=== PATIENT | female | born 1955 | race Caucasian/White ===

== ENCOUNTER 2017-02-23 15:53 | Emergency (ER) | payer BC ==
[2017-02-23 16:05] VITALS: BP 215/115
[2017-02-23] MEDS ORDERED: oxyCODONE ER 10 MG TAB.ER PO ONE (17:21)
--- NOTE | 2017-02-23 17:25 | EDM.PDOC ---
ED HPI GENERAL MEDICAL PROBLEM - General Chief Complaint: Drug or Alcohol Abuse Stated Complaint: PRESCRIPTION DRUG WITHDRAWL Time Seen by Provider: 02/23/17 16:59 Source of Information: Reports: Patient History Limitations: Reports: No Limitations - History of Present Illness INITIAL COMMENTS - FREE TEXT/NARRATIVE: Patient is a 62-year-old female with a history of anxiety, bipolar, depression, chronic pain syndrome, narcotic addiction, hypertension who presents to the ED after dumping all her medications. Patient states her mother recently and patient dumped all her medications thinking that she would be okay. She has a history of chronic narcotic use and thought she could quit cold turkey. Patient takes narcotics for chronic pain to neck, left humerus, back, knees bilaterally, fingers, and surgical incision from her breast cancer. She's been taking OxyContin for was 20 years 30 mg twice a day. She also takes oxycodone 5 mg tab during the day. For breakthrough pain. She is experiencing withdrawal symptoms including stomach cramping, diarrhea, hot and cold flashes. She is mildly nauseated with no emesis. There is no blood in her stool she denies any dysuria, chest pain, shortness of breath. There is no documented fever. These current symptoms are similar to previous episodes when she withdrawal from opiates. She has an appointment scheduled with Toya Sands tomorrow morning. In addition she states she was taking 3 different antidepressants and also metoprolol. She denies any suicidal or homicidal ideations. She denies being depressed at this time. Bilateral Lower Abdomen Pain Score (Numeric/FACES): 8 - Related Data Allergies Allergy/AdvReac Type Severity Reaction Status Date / Time ciprofloxacin Allergy Cannot Verified 03/24/16 12:40 Remember varenicline [From Chantix] AdvReac Anxiety Verified 03/24/16 12:46 Home Meds: Home Meds Metoprolol Tartrate 25 mg PO BID #6 tablet 02/23/17 [Rx] oxyCODONE HCl [Oxycontin] 30 mg PO BID #6 tab.er.12h 02/23/17 [Rx] oxyCODONE HCl/Acetaminophen [oxyCODONE-Acetaminophen 5-325] 1 tab PO Q6H PRN #6 tablet 02/23/17 [Rx] Past Medical History HEENT History: Reports: Impaired Vision Cardiovascular History: Reports: Hypertension Musculoskeletal History: Reports: Fracture Other Musculoskeletal History: left arm Psychiatric History: Reports: Addiction, Anxiety, Bipolar, Depression Oncologic (Cancer) History: Reports: Breast, Cervix - Past Surgical History Female Surgical History: Reports: Hysterectomy, Mastectomy Musculoskeletal Surgical History: Reports: Other (See Below) Other Musculoskeletal Surgeries/Procedures:: plate in left arm Social & Family History - Family History Family Medical History: Noncontributory - Tobacco Use Smoking Status *Q: Current Every Day Smoker Years of Tobacco use: 45 Packs/Tins Daily: 1 - Caffeine Use Caffeine Use: Reports: Coffee - Recreational Drug Use Recreational Drug Use: Yes Recreational Drug Type: Reports: Oxycodone ED ROS GENERAL - Review of Systems Review Of Systems: ROS reveals no pertinent complaints other than HPI. ED EXAM, GENERAL - Physical Exam Exam: See Below Exam Limited By: No Limitations General Appearance: Alert, WD/WN, No Apparent Distress Eye Exam: Bilateral Eye: PERRL Ears: Hearing Grossly Normal Nose: Normal Inspection Throat/Mouth: Normal Voice, No Airway Compromise Neck: Normal Inspection, Supple Respiratory/Chest: No Respiratory Distress, Lungs Clear, Normal Breath Sounds, No Accessory Muscle Use Cardiovascular: Normal Peripheral Pulses, Regular Rate, Rhythm, No Murmur GI/Abdominal: Normal Bowel Sounds, Soft, Non-Tender, No Organomegaly, No Distention Extremities: Normal Inspection, Normal Range of Motion, Non-Tender, No Pedal Edema, Normal Capillary Refill Neurological: Alert, Oriented, CN II-XII Intact, Normal Cognition, No Motor/ Sensory Deficits Psychiatric: Normal Affect, Normal Mood Skin Exam: Warm, Dry, Intact, Normal Color Course - Vital Signs Last Recorded V/S: Last Vital Signs Temp 98.7 F 02/23/17 16:01 Pulse 78 02/23/17 18:07 Resp 18 02/23/17 16:01 BP 215/115 H 02/23/17 16:01 Pulse Ox 100 02/23/17 18:07 - Orders/Labs/Meds Meds: Medications Discontinued Medications Generic Name Dose Route Start Last Admin Trade Name Freq PRN Reason Stop Dose Admin Metoprolol Succinate 25 mg 02/24/17 17:42 Toprol Xl PO 02/24/17 17:43 DAILY ONE Metoprolol Tartrate 25 mg 02/23/17 17:45 Lopressor PO 02/23/17 17:46 ONETIME ONE Oxycodone HCl 30 mg 02/23/17 17:21 02/23/17 17:30 Oxycontin PO 02/23/17 17:22 30 mg ONETIME ONE Administration - Re-Assessments/Exams Free Text/Narrative Re-Assessment/Exam: BP on examination was 180 systolic. [facility] was contacted and current medication list was faxed to the ED. Patient is taking OxyContin 30 mg tab 1 tab by mouth every 12 hours and oxycodone tab 5 mg 1 tablet every 4 hours as needed for moderate pain. Last prescription was dated 01/13/2017 for OxyContin 30 mg tabs. Oxycodone 5 mg tabs . Ordered OxyContin 30 mg by mouth. Patient has an appointment with her PCP Tressa Adams for tomorrow morning. Pharmacy states She has not been on any anti- hypertensive medications for almost one year. No antidepressants were listed on medication list. 02/23/17 17:40 Questioned patient what medications she is currently on. States she receives her antidepressants and [facility] medications [facility] She does not know exactly the dosage or antidepressant medications she is currently taking. She does know she takes metoprolol 25 mg twice a day. Workup metoprolol tartrate 25 mg by mouth. Prescription for OxyContin, oxycodone, and metoprolol provided. She will see her PCP tomorrow morning. Discharge instructions as documented. 02/25/17 08:41 Departure - Departure Time of Disposition: 17:47 Disposition: Home, Self-Care 01 Condition: Good Clinical Impression: Drug dependence Medication withdrawal Qualifiers: Substance type: opioid Qualified Code(s): F11.23 - Opioid dependence with withdrawal HTN (hypertension) Qualifiers: Hypertension type: unspecified Qualified Code(s): I10 - Essential (primary) hypertension Depression Qualifiers: Depression Type: other depression Qualified Code(s): F32.89 - Other specified depressive episodes - Discharge Information Prescriptions: Metoprolol Tartrate 25 mg PO BID #6 tablet oxyCODONE HCl [Oxycontin] 30 mg PO BID #6 tab.er.12h oxyCODONE HCl/Acetaminophen [oxyCODONE-Acetaminophen 5-325] 1 tab PO Q6H PRN #6 tablet PRN Reason: Pain (Severe 7-10) Instructions: Hypertension, [id number], Finding Treatment for Addiction Referrals: Vandana Adams NP [Primary Care Provider] - Additional Instructions: Take the OxyContin, oxycodone, and metoprolol as prescribed. Keep your appointment with your PCP for scheduled for tomorrow morning for refills of pain medications, hypertension medications, and antidepressants. No driving this evening with taking the OxyContin or oxycodone. Return to ED as needed for any new or worsening symptoms.
[2017-02-23] MEDS ORDERED: Metoprolol Tartrate 25 MG Tab PO ONE (17:45)
[2017-02-24] MEDS ORDERED: Metoprolol Succinate 25 MG Tab.ER PO ONE (17:42)
== END 2017-02-23 17:55 | disposition home or self-care (01) ==
LOC: JD.ED 15:53
DX: F11.23 Opioid dependence with withdrawal (principal); F32.89 Other specified depressive episodes; I10 Essential (primary) hypertension; F17.210 Nicotine dependence, cigarettes, uncomplicated; Z88.1 Allergy status to other antibiotic agents; Z90.710 Acquired absence of both cervix and uterus; Z98.890 Other specified postprocedural states; Z88.8 Allergy status to other drugs, medicaments and biological substances
CPT/HCPCS: 99284; A9270; 99283

== ENCOUNTER 2017-03-21 17:43 | Emergency (ER) | payer BC ==
[2017-03-21 18:11] VITALS: BP 194/97
--- NOTE | 2017-03-21 18:41 | EDM.PDOCBH ---
ED HPI GENERAL MEDICAL PROBLEM - General Chief Complaint: Drug or Alcohol Abuse Stated Complaint: WITHDRAWAL SYMPTOMS Time Seen by Provider: 03/21/17 18:38 Source of Information: Reports: Patient History Limitations: Reports: No Limitations - History of Present Illness INITIAL COMMENTS - FREE TEXT/NARRATIVE: 62 year old female presents for evaluation and treatment of withdrawl symptoms. Patient reports she has bipolar and depression she has been self medicating with her narcotic pain medications. She receives oxycontin 30mg #60 and oxycodone 5mg #180 monthly. She is currently out of these medications, she took the last one yesterday. She reports taking excess over the last several weeks. She has stopped her depression medications. States she has been on narcotic pain medications for about 20 years. She is unsure why shy is on narcotic pain medications; she states it is either for IBS, depression or bipolar. Was previously on lexapro, fetzima, amitryptline and is currently on valvium for depression and anxiety. She denies any current suicidal thoughts, suicidial plan , homicidial thoughts or homicidal plan. Patient is currently reporting withdrawl symptoms. States she has been through withdrawl symptoms before and she knows this is what she is experiencing. She reports feeling hot and cold, stomach cramps, diarrhea, nausea and headaches. She denies any tremors, vomiting or seizures. Patient dose have some diazepam left. She is in a pain contract with Toya Adams. - Related Data Allergies Allergy/AdvReac Type Severity Reaction Status Date / Time ciprofloxacin Allergy Cannot Verified 03/21/17 18:11 Remember varenicline [From Chantix] AdvReac Anxiety Verified 03/21/17 18:11 Home Meds: Home Meds Metoprolol Tartrate 25 mg PO BID #6 tablet 02/23/17 [Rx] oxyCODONE HCl [Oxycontin] 30 mg PO BID #6 tab.er.12h 02/23/17 [Rx] oxyCODONE HCl/Acetaminophen [oxyCODONE-Acetaminophen 5-325] 1 tab PO Q6H PRN #6 tablet 02/23/17 [Rx] Amitriptyline HCl 100 mg PO BEDTIME 03/21/17 [History] Levomilnacipran Hydrochloride [Fetzima] 80 mg PO DAILY 03/21/17 [History] Levothyroxine Sodium [Synthroid] 1 tab PO DAILY 03/21/17 [History] Ondansetron [Zofran ODT] 4 mg PO Q8H PRN #12 tab.dis 03/21/17 [Rx] Past Medical History HEENT History: Reports: Cataract, Impaired Vision Cardiovascular History: Reports: Hypertension Gastrointestinal History: Reports: Irritable Bowel Syndrome Musculoskeletal History: Reports: Fracture Other Musculoskeletal History: left arm Psychiatric History: Reports: Addiction, Anxiety, Bipolar, Depression Oncologic (Cancer) History: Reports: Breast, Cervix - Past Surgical History HEENT Surgical History: Reports: Cataract Surgery Female Surgical History: Reports: Hysterectomy, Mastectomy Musculoskeletal Surgical History: Reports: Other (See Below) Other Musculoskeletal Surgeries/Procedures:: plate in left arm Social & Family History - Family History Family Medical History: Noncontributory - Tobacco Use Smoking Status *Q: Current Every Day Smoker Years of Tobacco use: 20 Packs/Tins Daily: 1 - Caffeine Use Caffeine Use: Reports: Coffee - Recreational Drug Use Recreational Drug Use: No Recreational Drug Type: Reports: Oxycodone ED ROS GENERAL - Review of Systems Review Of Systems: See Below Constitutional: Reports: Chills GI/Abdominal: Reports: Abdominal Pain (abdominal cramps), Nausea. Denies: Vomiting Neurological: Reports: Headache. Denies: Seizure, Tremors Psychiatric: Reports: Depression. Denies: Homicidal Ideation, Suicidal Ideation ED EXAM, BEHAVIORAL HEALTH - Physical Exam Exam: See Below Exam Limited By: No Limitations General Appearance: Alert, WD/WN, No Apparent Distress Respiratory/Chest: No Respiratory Distress, Lungs Clear, Normal Breath Sounds Cardiovascular: Normal Peripheral Pulses, Regular Rate, Rhythm, No Murmur GI/Abdominal: Soft, Non-Tender Neurological: Alert, Normal Cognition Psychiatric: Alert, Depressed Mood, Tearful. 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 She received oxycodone 5mg #180, oxycotin 30mg #60 (30 days supplies) on 02-24-17 and diazepam #180 (90 day supply) on 02-24. She has received 35 prescriptions for controlled substances from 2 prescribers in the last year. She is out of her medications almost a full week early. Review of the patient record shows an ER visit on 02-23-17 for withdrawal symptoms after discarding the remainder her medication after trying to quit "sold turkey". She was given a refill her her oxycodone and oxycotin then, 6 tabs each. Patient reports to me she has been off her antidepressants for a couple of days. Her significant other states this has been longer. ER record indicates she was not taking them at that time of her last visit. Given the patient is not suicidal or homicidal at this time a psychiatric inpatient stay is not indicated. Given the patient is not taking her narcotics as prescribed and she is in a pain contract I am unable to fill her medication today. She has mild withdrawl symptoms today which may worsen tomorrow. She asks I put her in the hospital for withdrawl. I feel this is inappropriate as she can manage the symptoms at home. She will likely be uncomfortable. But can manage with the valvium she has , OTC medications and other modalities such as warm baths. I encouraged her to call her PCP Thursday to discuss her current situation and see if her medications could be filled early. Departure - Departure Time of Disposition: 18:38 Disposition: Home, Self-Care 01 Condition: Fair Clinical Impression: Narcotic abuse - Discharge Information Prescriptions: Ondansetron [Zofran ODT] 4 mg PO Q8H PRN #12 tab.dis PRN Reason: Nausea Instructions: Chemical Dependency Referrals: Vandana Adams NP [Primary Care Provider] - Additional Instructions: Unfortunately, we are unable to refill narcotic medications for chronic pain in the ER. I recommend you continue use your diazepam as needed for anxiety. Take over-the- counter Tylenol or Motrin as needed for abdominal pain and cramping. I recommend he take a warm bath to help with your symptoms. Contact your primary care provider's office on Thursday to see if they will refill your medications early. Zofran 1 tab sublingual every 8 hours as needed for nausea given. Please return to the ER if your symptoms change or worsen.
== END 2017-03-21 18:52 | disposition home or self-care (01) ==
LOC: JD.ED 17:43
DX: F11.10 Opioid abuse, uncomplicated (principal); I10 Essential (primary) hypertension; F17.210 Nicotine dependence, cigarettes, uncomplicated; Z90.710 Acquired absence of both cervix and uterus; Z98.890 Other specified postprocedural states; Z88.8 Allergy status to other drugs, medicaments and biological substances; Z88.1 Allergy status to other antibiotic agents; Z79.899 Other long term (current) drug therapy; Z98.49 Cataract extraction status, unspecified eye
CPT/HCPCS: 99282; 99283

== ENCOUNTER 2018-03-19 14:46 | Emergency (ER) | payer BC ==
[2018-03-19 15:00] VITALS: BP 165/95
--- NOTE | 2018-03-19 15:44 | EDM.PDOCBH ---
ED HPI GENERAL MEDICAL PROBLEM - General Chief Complaint: Behavioral/Psych Stated Complaint: YANIRA SHEPHERD Time Seen by Provider: 03/19/18 15:17 Source of Information: Reports: Patient History Limitations: Reports: No Limitations - History of Present Illness INITIAL COMMENTS - FREE TEXT/NARRATIVE: 63-year-old female presents for management of her bipolar and depression. Patient has a history of bipolar and depression. She states she has not had a manic episode and the last 18 years. She reports for the last few months and in particular the last 2 weeks her depression has significantly worsened. is present in the room and states that she is sleeping most the day. Sleeping 16 to 18 hrs. and lays in bed for the remainder most the day. Patient does feel depressed. She denies any energy. She states she has not had any interest in anything. She does not have any appetite. She states that she is having trouble with short-term memory. She states that "things don't feel real ". This feels similar to previous depressive episodes she's had the past. Patient denies any thoughts of suicide, however, states that she did make some comments about suicide several weeks ago. She states that she has her mago and she "wouldn't take her life ." she does not have any suicidal plan. No homicidal thoughts or plan. She is currently on Remeron 45 mg, Abilify 20 mg and lamictal of 50 mg. She has been on this since May. Was previously seen by Dr. Tran but has been unable to see him since May due to scheduling problems. She is not currently seeing a counselor. Patient has seen Dr. Bunch at [facility], she felt that this was not a good fit for her. She does have an appointment with a provider at [facility] on Thursday. Her primary care provider is Toya Adams. Reports that she try amphetamine 10 mg 3 times a day several weeks ago. States initially she felt better but then her symptoms worsened again. She states she's had her thyroid checked in the recent past by Vandana Adams. - Related Data Allergies Allergy/AdvReac Type Severity Reaction Status Date / Time ciprofloxacin Allergy Cannot Verified 03/19/18 14:59 Remember varenicline [From Chantix] AdvReac Anxiety Verified 03/19/18 14:59 Home Meds: Home Meds Metoprolol Tartrate 25 mg PO BID #6 tablet 02/23/17 [Rx] oxyCODONE HCl [Oxycontin] 30 mg PO BID #6 tab.er.12h 02/23/17 [Rx] oxyCODONE HCl/Acetaminophen [oxyCODONE-Acetaminophen 5-325] 1 tab PO Q6H PRN #6 tablet 02/23/17 [Rx] Amitriptyline HCl 100 mg PO BEDTIME 03/21/17 [History] Levomilnacipran Hydrochloride [Fetzima] 80 mg PO DAILY 03/21/17 [History] Levothyroxine Sodium [Synthroid] 1 tab PO DAILY 03/21/17 [History] Ondansetron [Zofran ODT] 4 mg PO Q8H PRN #12 tab.dis 03/21/17 [Rx] ARIPiprazole [Abilify] 10 mg PO DAILY #30 tab 03/19/18 [Rx] buPROPion [Wellbutrin SR] 100 mg PO DAILY #30 tab.sr 03/19/18 [Rx] Past Medical History HEENT History: Reports: Cataract, Impaired Vision Cardiovascular History: Reports: Hypertension Gastrointestinal History: Reports: Irritable Bowel Syndrome Musculoskeletal History: Reports: Fracture Other Musculoskeletal History: left arm Psychiatric History: Reports: Addiction, Anxiety, Bipolar, Depression Oncologic (Cancer) History: Reports: Breast, Cervix - Past Surgical History HEENT Surgical History: Reports: Cataract Surgery Female Surgical History: Reports: Hysterectomy, Mastectomy Musculoskeletal Surgical History: Reports: Other (See Below) Other Musculoskeletal Surgeries/Procedures:: plate in left arm Social & Family History - Family History Family Medical History: Noncontributory - Caffeine Use Caffeine Use: Reports: Coffee ED ROS GENERAL - Review of Systems Review Of Systems: See Below Constitutional: Reports: Fatigue, Decreased Appetite Psychiatric: Reports: Depression. Denies: Homicidal Ideation, Suicidal Ideation ED EXAM, BEHAVIORAL HEALTH - Physical Exam Exam: See Below Exam Limited By: No Limitations General Appearance: Alert, WD/WN, No Apparent Distress Ears: Normal External Exam Nose: Normal Inspection Throat/Mouth: Normal Inspection, Normal Lips, Normal Voice, No Airway Compromise Neck: Normal Inspection Respiratory/Chest: No Respiratory Distress Neurological: Alert, Normal Mood/Affect, Normal Cognition Psychiatric: Alert, Depressed Mood. No: Non-Communicative, Poor Eye Contact, Uncooperative, Homicidal Thoughts, Suicidal Plan, Suicidal Thoughts, Auditory Hallucinations, Visual Hallucinations, Paranoid Thoughts, Threatening Behavior Skin Exam: Warm, Dry, Normal color COURSE, BEHAVIORAL HEALTH COMP - Course Vital Signs: Last Vital Signs Temp 98.4 F 03/19/18 14:53 Pulse 96 03/19/18 14:53 Resp 12 03/19/18 14:53 BP 165/95 H 03/19/18 14:53 Pulse Ox 94 L 03/19/18 14:53 Re-Assessment/Re-Exam: 16:[address] Tran, psychiatry yarn preparation supervisor. Recommend increasing her Abilify from 20 mg 30 mg, increasing the Lamictal from 50 mg to 75 mg and starting Wellbutrin SR 100 mg. Recommend following- up Thursday as planned. He is tentatively to start seeing patients . Discussed the plan with the patient. She is agreeable to medication changes and will keep her follow-up appointment. Departure - Departure Time of Disposition: 16:38 Disposition: Home, Self-Care 01 Condition: Good Clinical Impression: Depressive disorder - Discharge Information *PRESCRIPTION DRUG MONITORING PROGRAM REVIEWED*: Yes *COPY OF PRESCRIPTION DRUG MONITORING REPORT IN PATIENT SLICK: No Prescriptions: ARIPiprazole [Abilify] 10 mg PO DAILY #30 tab buPROPion [Wellbutrin SR] 100 mg PO DAILY #30 tab.sr Instructions: Major Depressive Disorder, Adult, [id number] Referrals: Vandana Adams NP [Primary Care Provider] - Forms: ED Department Discharge Additional Instructions: The medicine shop is open until 8 PM tonight. Recommended starting Wellbutrin SR 100 mg every morning. Increase your Abilify from 20 mg to 30 mg daily. Increase your Lamictal from 50 mg to 75 mg daily. Keep your appointment at [facility] on Thursday. Recommend checking your thyroid if you have not done so in the last year. Your Primary care provider can do this for you. Tentatively Dr. Tran is scheduled to res April 23. I recommend you continue to see the psychiatrist at [facility]'s help in the meantime. Please return to the ER if your symptoms change or worsen.
== END 2018-03-19 16:50 | disposition home or self-care (01) ==
LOC: JD.ED 14:46
DX: F32.9 Major depressive disorder, single episode, unspecified (principal); Z88.1 Allergy status to other antibiotic agents; Z88.8 Allergy status to other drugs, medicaments and biological substances; I10 Essential (primary) hypertension
CPT/HCPCS: 99284